=== PATIENT | female | born 1995 | race Asian ===

== ENCOUNTER 2018-02-15 18:17 | Emergency (ER) | payer SELFPAY ==
[~2018-02-15] VITALS: Ht 162.6 cm; Wt 72.6 kg
[2018-02-15 18:28] VITALS: BP 123/73; PULSE 97; TEMP 36.8; O2SAT 100; Ht 162.6 cm; Wt 72.6 kg
[2018-02-15] MEDS ORDERED: GELATIN SPONGE 12-7MM EXT ONE (19:00)
--- NOTE | 2018-02-16 14:36 | EMERGENCY ROOM VISIT NOTE ---
ED Visit Note First contact with patient: 18:35 Chief Complaint: I cut my left index finger. History of Present Illness: Ms. Blackwell is a 22-year-old [place] female who ambulates into the ED accompanied by female friend complaining of left index finger laceration. Patient reports approximately 1 hour ago she was cutting an apple with a small knife and cut her finger. She reports at that time there was moderate bleeding. She has contained much of the bleeding but reports it is still oozing. Associated with her laceration she has a mild stinging sensation in the area the laceration. She rates this discomfort 2/10. The pain is nonradiating. Pain worsens with palpation. She has not identified any alleviating factors related to the pain. She has not taken medication for pain prior to arrival at the hospital. Patient denies any associated symptoms. Review of Systems: As noted above in history of present illness. Past Medical History: Current Medications: Patient denies. Allergies to Medications: Patient denies. Social History: Patient is currently university student; she feels safe in her home environment; she denies tobacco and alcohol use. Tetanus Immunization Status: Patient reports up-to-date. Physical Examination: Vital Signs: Date Time Temp Pulse Resp B/P (MAP) Pulse Ox O2 Delivery O2 Flow Rate FiO2 02/15/18 18:28 36.8 97 16 123/73 100 Room Air General: 22-year-old female in no acute distress, nontoxic-appearing, afebrile and hemodynamically stable. Neurological: Awake, alert and oriented 3. Answering questions appropriately and following commands. Skin: Warm, dry and pink. Left Index Finger: Over the posterior aspect of the distal femoral necks patient has an oval 1 cm skin avulsion that starts just lateral to the finger nail at the level of the eponychium and extending distally. The avulsion also involves a small portion of the lateral fold and fingernail. Currently there is normal oozing of blood at the area. Left Index Finger: Soft tissue injury as noted above. No gross bony deformity. No tenderness over the PIP joint or the rest of the finger with the exception of where the avulsion is present. Throughout the distal finger the skin was warm and pink and capillary refill was brisk. She was able to distinguish light sensations to all dermatomes of of the finger. She had full range of motion in flexion and extension of the DIP joint without difficulty or increased pain. ED Course: Patient is assessed as noted above. Patient's medication list was reviewed. Patient was offered pain medication and refused. The avulsion site was was prepped with betadine and a sterile field set. The wound was explored for foreign bodies and none found. Copious irrigation was performed using sterile saline. With direct pressure the bleeding subsided. Debridement was not performed. Patient's wound continued to lose blood so a small piece of [place] was placed over the avulsion site and wrapped with a sterile dressing. Patient was educated about abdon's findings and instructed on her treatment plan; she verbalizes understanding and agreement with this plan. Clinical Impression: Skin avulsion left index finger. Disposition: Patient discharged home in stable condition; prior to departure she was reassessed and subjectively reported she was pain-free. Plan: Comfort measures, wound care, and signs of infection were discussed with the patient. Patient was encouraged to follow-up with [facility] or return to the ED for any signs of infection or any new/concerning symptoms.
== END 2018-02-15 19:54 | disposition home or self-care (01) ==
LOC: C.EDB 18:20 → C.EDD 19:54
DX: S61.211A Laceration without foreign body of left index finger without damage to nail, initial encounter (principal); W26.0XXA Contact with knife, initial encounter